=== PATIENT | male | born 1975 | race Caucasian/White ===

== ENCOUNTER 2018-08-27 21:51 | Observation (INO) | payer MEDICARE, OTHER ==
[2018-08-27 22:01] VITALS: BMI 20.5
--- NOTE | 2018-08-27 23:07 | PDOC ---
History of Present Illness - General Chief Complaint: Chest Pain Stated Complaint: CHEST PAIN - History of Present Illness Initial Comments: The pt is a 43M w/ no reported PMH who presents for evaluation of palpitations, rapid breathing, L posterior neck pain and L arm tingling that started at rest. The pt first noted the posterior neck tightness and beginnings of arm tingling while at work. While driving, he noted the onset of palpitations and rapid breathing which then lasted for approximately one hour. The took aspirin, arrived here, was advised to take some deep breaths and his palpitations and tachypnea resolved. Currently he reports L posterior neck pain and mild L hand/forearm tingling that is improving. Denies fevers/chills, recent illness, WEBBER, vision changes, N/V/C/D, dysuria, hematuria 08/27/18 23:22 Past History - Past Medical History Allergies/Adverse Reactions: Allergies Allergy/AdvReac Type Severity Reaction Status Date / Time No Known Allergies Allergy Verified 08/27/18 22:01 Cardiac Disorders: Yes (LGL) COPD: No - Suicide/Smoking/Psychosocial Hx Smoking History: Never smoked Have you smoked in the past 12 months: No Information on smoking cessation initiated: No Hx Alcohol Use: No Drug/Substance Use Hx: No Review of Systems - Review of Systems Able to Perform ROS?: Yes Comments:: GENERAL/CONSTITUTIONAL: No fever or chills HEAD, EYES, EARS, NOSE AND THROAT: No change in vision or hearing. No sore throat CARDIOVASCULAR: No chest pain RESPIRATORY: Denies cough, hemoptysis GASTROINTESTINAL: No nausea, vomiting, diarrhea or constipation GENITOURINARY: No dysuria, frequency, or change in urination MUSCULOSKELETAL: No joint or muscle swelling or pain. No back pain SKIN: No rash NEUROLOGIC: No headache, vertigo, loss of consciousness, or change in strength ENDOCRINE: No increased thirst. No abnormal weight change HEMATOLOGIC/LYMPHATIC: No anemia, easy bleeding, or history of blood clots ALLERGIC/IMMUNOLOGIC: No hives or skin allergy 08/27/18 23:06 Is the patient limited Sami proficient: No *Physical Exam - Vital Signs Last Vital Signs Temp Pulse Resp BP Pulse Ox 98.0 F 80 18 159/78 100 08/27/18 21:55 08/27/18 21:55 08/27/18 21:55 08/27/18 21:55 08/27/18 21:55 - Physical Exam Comments: GENERAL: Awake, alert, and oriented to person/place/time, in no acute distress HEAD: No signs of trauma, normocephalic, atraumatic EYES: PERRLA, EOMI, sclera anicteric, conjunctiva clear ENT: Hearing grossly normal, nares patent, oropharynx clear without exudates. Moist mucosa LUNGS: No distress, speaks full sentences, clear to auscultation bilaterally HEART: Regular rate and rhythm, normal S1 and S2, no murmurs appreciated, peripheral pulses normal and equal bilaterally ABDOMEN: Soft, nontender, normoactive bowel sounds. No guarding, no rebound EXTREMITIES: Normal inspection, Normal range of motion, no edema. No clubbing or cyanosis NEUROLOGICAL: Cranial nerves II through XII grossly intact. Normal speech, normal gait, no focal sensorimotor deficits SKIN: Warm, Dry 08/27/18 23:06 Medical Decision Making - Medical Decision Making The pt is a 43M w/ no reported PMH who presents for evaluation of palpitations and tachypnea lasting for approximately 1 hour which has since resolved as well as posterior neck pain and L arm tingling which are improving ED Course ECG w/ sinus bradycardia w/o evidence of acute infarction; HR 59; QTc 413 CMP, CBC, Trop I CXR 08/27/18 23:[address] Pepper, history and findings to this point discussed and all questions answered 08/28/18 00:06 *DC/Admit/Observation/Transfer Diagnosis at time of Disposition: Palpitations - Referrals Referrals: Margarito Garcia MD [Primary Care Provider] - - Patient Instructions - Post Discharge Activity
[2018-08-28 00:26] LABS: HEMATOCRIT 41.3 % (35.4-49); HEMOGLOBIN 13.9 GM/dL (11.7-16.9); MCH 27.7 pg (25.7-33.7); MCHC 33.7 g/dl (32.0-35.9); MEAN PLT VOLUME 8.6 fl (7.5-11.1); PLATELET COUNT 233 K/MM3 (134-434); RBC 5.03 M/mm3 (4.00-5.60); RDW 14.2 % (11.9-15.9); WHITE BLOOD COUNT 8.5 K/mm3 (4.0-10.0)
--- NOTE | 2018-08-28 00:31 | PDOC ---
*Physical Exam - Vital Signs Last Vital Signs Temp Pulse Resp BP Pulse Ox 98.0 F 80 18 159/78 100 08/27/18 21:55 08/27/18 21:55 08/27/18 21:55 08/27/18 21:55 08/27/18 21:55 - Physical Exam Comments: 08/28/18 00:52 GENERAL: Awake, alert, and fully oriented, in no acute distress HEAD: No signs of trauma, normocephalic, atraumatic EYES: EOMI, sclera anicteric, conjunctiva clear ENT: oropharynx clear without exudates. Moist mucosa NECK: Normal ROM, supple LUNGS: No distress, speaks full sentences, clear to auscultation bilaterally HEART: Regular rate and rhythm, normal S1 and S2, no murmurs, rubs or gallops, peripheral pulses normal and equal bilaterally. ABDOMEN: Soft, nontender, normoactive bowel sounds. No guarding, no rebound. No masses EXTREMITIES : Normal inspection, Normal range of motion, no edema. No clubbing or cyanosis. NEUROLOGICAL: Cranial nerves II through XII grossly intact. Normal speech, normal gait, no focal sensorimotor deficits SKIN: Warm, Dry, normal turgor, no rashes or lesions noted ED Treatment Course - LABORATORY CBC & Chemistry Diagram: 08/28/18 00:13 08/28/18 00:13 Medical Decision Making - Medical Decision Making 08/28/18 00:26 Patient signed out by resident Dr. Brown In short patient is a 43 year old man with a history of LownGanongLevine and chronic L shoulder pain who presents with L posterior neck tightness, L arm tingling, and with palpitations 1 hour prior to arrival which caused him to take an ASA. Palpitations resolved upon arrival to ED and L posterior neck pain and tinlging that is improving. EKG was done which showed sinus bradycardia w/ shortned NV interval to 104ms. ED Course: pending cbc, cmp, trop, cxr 08/28/18 01:06 labwork unremarkable will touch base with pcp as patient with LGL 08/28/18 01:[address] Garcia feels that patient could benefit from cardiology assessment and tele obs. Will admit *DC/Admit/Observation/Transfer Diagnosis at time of Disposition: Palpitations - Discharge Dispostion Condition at time of disposition: Fair Decision to Admit order: Yes - Referrals - Patient Instructions - Post Discharge Activity
[2018-08-28 00:51] LABS: ALK PHOS 45 U/L (45-117); ANION GAP 6 MMOL/L (8-16); BILIRUBIN,TOTAL 0.2 mg/dL (0.2-1); BLOOD UREA NITROGEN 19 mg/dL (7-18); CALCIUM 9.2 mg/dL (8.5-10.1); CHLORIDE 108 mmol/L (98-107); CO2 26 mmol/L (21-32); GLUCOSE,RANDOM 97 mg/dL (74-106); POTASSIUM 4.4 mmol/L (3.5-5.1); SGOT/AST 12 U/L (15-37); SGPT/ALT 21 U/L (13-61); SODIUM 140 mmol/L (136-145); TOT PROT 7.9 g/dl (6.4-8.2)
--- NOTE | 2018-08-28 00:56 | PDOC ---
Attending Attestation - HPI HPI: 08/28/18 01:05 The patient is a 43 year old male, with a significant past medical history of LGL (Jxjx-Jlmrug-Jvwlpf Syndrome), who presents to the emergency department with , palpitations, rapid breathing, L posterior neck pain and L arm tingling onsetting at rest. Patient notes the palpitations has since resolved with deep inspiration and the L posterior neck pain/L arm tingling has since improved. He denies any recent fevers, chills, or dizziness. He denies any recent nausea, vomit, diarrhea or constipation. He denies any recent dysuria, frequency, urgency or hematuria. Allergies: NKDA Primary Care Physician: Dr. Margarito Garcia - Physicial Exam PE: 08/28/18 01:05 GENERAL: Well developed, well nourished. Awake and alert. No acute distress. HEENT: Normocephalic, atraumatic. PERRLA, EOMI. No conjunctival pallor. Sclera are non- icteric. Moist mucous membranes. Oropharynx is clear. NECK: Supple. Full ROM. No JVD. Carotid pulses 2+ and symmetric, without bruits. No thyromegaly. No lymphadenopathy. CARDIOVASCULAR: Regular rate and rhythm. No murmurs, rubs, or gallops. Distal pulses are 2+ and symmetric. PULMONARY: No evidence of respiratory distress. Lungs clear to auscultation bilaterally. No wheezing, rales or rhonchi. ABDOMINAL: Soft. Non-tender. Non-distended. No rebound or guarding. No organomegaly. Normoactive bowel sounds. MUSCULOSKELETAL Normal range of motion at all joints. No bony deformities or tenderness. No CVA tenderness. EXTREMITIES: No cyanosis. No clubbing. No edema. No calf tenderness. SKIN: Warm and dry. Normal capillary refill. No rashes. No jaundice. NEUROLOGICAL: Alert, awake, appropriate. Cranial nerves 2-12 intact. No deficits to light touch and temperature in face, upper extremities and lower extremities. No motor deficits in the in face, upper extremities and lower extremities. Normoreflexic in the upper and lower extremities. Normal speech. Toes are down- going bilaterally. Gait is normal without ataxia. PSYCHIATRIC: Cooperative. Good eye contact. Appropriate mood and affect. <Colten Lewis - Last Filed: 08/28/18 01:05> - Resident Resident Name: Joce Brown - ED Attending Attestation I have performed the following: I have examined & evaluated the patient, The case was reviewed & discussed with the resident, I agree w/resident's findings & plan, Exceptions are as noted - Medical Decision Making 08/28/18 01:23 Patient has a history of Long Ganong Aguilar and experienced an episode of palpitations today ekg shows short pr interval labs unremarkable spoke w Dr Arsenio Garcia and he wants pt admitted OBS telemetry <Maryjane Bojorquez - Last Filed: 08/28/18 01:27> Attestations - Attestations 08/28/18 01:06 Documentation prepared by Colten Lewis, acting as medical records specialist for Maryjane Bojorquez MD. <Colten Lewis - Last Filed: 08/28/18 01:05>
[2018-08-28 01:36] LABS: CHOLESTEROL 222 mg/dL (50-200); HDL CHOLESTEROL 54 mg/dL (40-60); TRIGLYCERIDES 126 mg/dL (0-150)
[2018-08-28 07:23] VITALS: BP 110/70; PULSE 70; TEMP 98.8
--- NOTE | 2018-08-28 09:19 | EKG ---
Test Reason : Blood Pressure : / mmHG Vent. Rate : 059 BPM Atrial Rate : 059 BPM P-R Int : 104 ms QRS Dur : 080 ms QT Int : 418 ms P-R-T Axes : 043 070 060 degrees QTc Int : 413 ms SINUS BRADYCARDIA WITH SHORT ME OTHERWISE NORMAL ECG NO PREVIOUS ECGS AVAILABLE Confirmed by DEWAYNE HASTINGS, KARAN ([id number]) on 08/28/2018 9:19:05 AM Referred By: Confirmed By:KARAN BUCHANAN MD
--- NOTE | 2018-08-28 09:47 | PN ---
Progress Note, Physician - Objective Vital Signs: Vital Signs Temperature 98.8 F 08/28/18 06:55 Pulse Rate 70 08/28/18 06:55 Respiratory Rate 16 08/28/18 06:55 Blood Pressure 110/70 08/28/18 06:55 O2 Sat by Pulse Oximetry (%) 99 08/28/18 06:55 Labs: CBC, BMP 08/28/18 00:13 08/28/18 00:13
== END 2018-08-28 09:42 | disposition left against medical advice (07) ==
LOC: JER 21:51 → JERBED 08-28 01:22
PROVIDERS: ADMIT Family Medicine; ATTEND Family Medicine
DX: R00.2 Palpitations (principal); M54.2 Cervicalgia; M25.512 Pain in left shoulder; R06.82 Tachypnea, not elsewhere classified
CPT/HCPCS: 36415; 71046-TC-FY; 80053; 80061; 82550; 83721; 84484; 85027; 93005; 93010; 99283-25; G0378